=== PATIENT | male | born 1980 | race Caucasian/White ===

== ENCOUNTER 2017-04-05 23:46 | Emergency (ER) | payer OTHER ==
[~2017-04-05] VITALS: Ht 172.7 cm; Wt 72.6 kg
[2017-04-06 00:53] LABS: HEMOGLOBIN 15.4 gm/dL (14.0-18.0); MCH 30.9 pg (26.0-34.0); MPV 8.6 fl. (7.2-11.1)
[2017-04-06 00:57] LABS: ABSOLUTE BASOPHILS 0.1 thou/uL (0.0-0.2); ABSOLUTE EOSINOPHILS 0.2 thou/uL (0.0-0.7); ABSOLUTE LYMPHOCYTES 3.4 thou/uL (0.8-5.3); ABSOLUTE MONOCYTES 1.6 thou/uL (0.0-1.2); ABSOLUTE NEUTROPHILS 9.3 thou/uL (1.6-8.1); BASOPHILS 0.9 %; EOSINOPHILS 1.3 %; HEMATOCRIT 45.7 % (42.0-52.0); LYMPHOCYTES 23.2 %; MCHC 33.6 g/dL (28.0-37.0); MCV 92.1 fL (80.0-100.0); MONOCYTES 10.8 %; NUCLEATED RBCS 0 /100WBC; PLATELET COUNT* 395 thou/uL (150-400); POLYS 63.8 %; RBC 4.96 mil/uL (4.50-6.00); RDW-CV 12.5 % (10.5-14.5); WBC 14.5 thou/uL (4.0-11.0)
[2017-04-06 01:02] LABS: CALCIUM 9.4 mg/dL (8.5-10.1); CREATININE 0.8 mg/dL (0.6-1.3); POTASSIUM 4.3 mmol/L (3.5-5.1)
[2017-04-06 03:07] VITALS: BP 135/90
== END 2017-04-06 03:08 | disposition short-term general hospital (02) ==
LOC: M.ERS 23:46
PROVIDERS: Emergency Medicine Emergency Medical Services
DX: S02.31XA Fracture of orbital floor, right side, initial encounter for closed fracture (principal); H11.422 Conjunctival edema, left eye; F17.210 Nicotine dependence, cigarettes, uncomplicated; F10.99 Alcohol use, unspecified with unspecified alcohol-induced disorder; Z88.5 Allergy status to narcotic agent; J45.909 Unspecified asthma, uncomplicated; W22.8XXA Striking against or struck by other objects, initial encounter; Y93.89 Activity, other specified; Y92.89 Other specified places as the place of occurrence of the external cause; Y99.8 Other external cause status